=== PATIENT | male | born 1960 | race Caucasian/White ===

== ENCOUNTER 2019-05-15 14:53 | Emergency (ER) | payer OTHER ==
[~2019-05-15] VITALS: Ht 177.8 cm; Wt 76.7 kg
[2019-05-15 15:03] VITALS: BP 116/76
--- NOTE | 2019-05-15 15:07 | NUR ---
PT AMBULATED TO ER BED 03
--- NOTE | 2019-05-15 15:12 | NUR ---
PT REQUESTING REFIL OF TEMAZEPAM 30MG. STATES HE RAN OUT AND OFFICE IS CLOSED UNTIL SATURDAY LAST FILLED 04/15/19 QTY 30. ER MD SAW THE PT, WILL REFILL MEDS . PT SATBLE, SITTING ON HIS BED. HX: INSOMNIA RX: TEMAZEPAM
[2019-05-15 15:19] VITALS: BP 116/76
== END 2019-05-15 15:18 | disposition home or self-care (01) ==
LOC: MED 14:53
DX: G47.00 Insomnia, unspecified (principal); Z76.0 Encounter for issue of repeat prescription
CPT/HCPCS: 99283

== ENCOUNTER 2019-12-21 17:27 | Emergency (ER) | payer OTHER ==
[~2019-12-21] VITALS: Ht 172.7 cm; Wt 74.8 kg
[2019-12-21 18:14] VITALS: BP 134/85
--- NOTE | 2019-12-21 18:54 | NUR ---
PT AMBULATED TO CHAIR B.
--- NOTE | 2019-12-21 19:08 | NUR ---
PT BIB SELF REQUESTING MEDICATION REFILL OF RESTORIL 30MG PO HS; LAST FILLED 11/21/19 30 COUNT. PT DENIES N/V/D; SKIN IS INTACT, PINK/WARM/DRY; AAOX4, PERRL, WITH EVEN AND STEADY GAIT; LUNGS CLEAR BL, BREATHING UNLABORED; HR EVEN AND REGULAR, BL PERIPHERAL PULSES PRESENT; BS ACTIVE X4, NO TENDERNESS TO PALPATION. PT DENIES ANY FEVER, CP, SOB, OR COUGH AT THIS TIME; PT STATES 0/10 PAIN AT THIS TIME; VSS; PATIENT POSITIONED FOR COMFORT; HOB ELEVATED; BEDRAILS UP X2; BED DOWN.
[2019-12-21 19:42] VITALS: BP 134/85
--- NOTE | 2019-12-21 19:42 | NUR ---
Patient discharged with v/s stable. Written and verbal after care instructions given and explained. Patient alert, oriented and verbalized understanding of instructions. Ambulatory with steady gait. All questions addressed prior to discharge. ID band removed. Patient advised to follow up with PMD. Rx of RESTORIL given. Patient educated on indication of medication including possible reaction and side effects. Opportunity to ask questions provided and answered.
== END 2019-12-21 19:42 | disposition home or self-care (01) ==
LOC: MED 17:27
DX: G47.00 Insomnia, unspecified (principal); Z76.0 Encounter for issue of repeat prescription
CPT/HCPCS: 99281

== ENCOUNTER 2020-03-27 12:50 | Emergency (ER) | payer OTHER ==
[~2020-03-27] VITALS: Ht 172.7 cm; Wt 74.8 kg
--- NOTE | 2020-03-27 13:09 | NUR ---
PT AMBULATED TO ER CHAIR A
--- NOTE | 2020-03-27 13:25 | NUR ---
MED REFILL: TEMAZEPAM 30 MG
== END 2020-03-27 13:48 | disposition home or self-care (01) ==
LOC: MED 12:50
DX: G47.00 Insomnia, unspecified (principal); F41.9 Anxiety disorder, unspecified; Z76.0 Encounter for issue of repeat prescription
CPT/HCPCS: 99283

== ENCOUNTER 2020-04-02 09:08 | Emergency (ER) | payer OTHER ==
[~2020-04-02] VITALS: Ht 172.7 cm; Wt 74.8 kg
--- NOTE | 2020-04-02 09:12 | NUR ---
Patient ambulated to bed 7.
[2020-04-02 09:16] VITALS: BP 126/62
--- NOTE | 2020-04-02 09:21 | NUR ---
PT PRESENTS TO THE ER FOR MEDICATION REFILL OF RESTORIL 30MG HS FOR HX OF INSOMNIA. DENIES N/V/D; SKIN IS PINK/WARM/DRY; AAOX4 WITH EVEN AND STEADY GAIT; LUNGS CLEAR BL; HR EVEN AND REGULAR; PT DENIES ANY FEVER, CP, SOB, OR COUGH AT THIS TIME; PATIENT STATES PAIN OF 0/10 AT THIS TIME; VSS; PATIENT POSITIONED FOR COMFORT; HOB ELEVATED; BEDRAILS UP X1; BED DOWN. ER MD MADE AWARE OF PT STATUS.
[2020-04-02 09:44] VITALS: BP 126/62
--- NOTE | 2020-04-02 09:44 | NUR ---
Patient discharged with v/s stable. Written and verbal after care instructions given and explained. Patient alert, oriented and verbalized understanding of instructions. Ambulatory with steady gait. All questions addressed prior to discharge. ID band removed. Patient advised to follow up with PMD. Rx of Restoril 30mg given. Patient educated on indication of medication including possible reaction and side effects. Opportunity to ask questions provided and answered.
== END 2020-04-02 09:44 | disposition home or self-care (01) ==
LOC: MED 09:08
DX: G47.00 Insomnia, unspecified (principal); R03.0 Elevated blood-pressure reading, without diagnosis of hypertension
CPT/HCPCS: 99281

== ENCOUNTER 2021-03-07 16:18 | Emergency (ER) | payer OTHER ==
[~2021-03-07] VITALS: Ht 172.7 cm; Wt 78.5 kg
[2021-03-07 16:24] VITALS: BP 138/88
--- NOTE | 2021-03-07 16:24 | NUR ---
PT AMBULATED TO BED 12 WITH STEADY GAIT
--- NOTE | 2021-03-07 16:25 | NUR ---
60 Y/O MALE REQUESTING MEDICATION REFILL FOR TEMAZEPAM TO HELP WITH SLEEPING/ANXIETY. PT TOOK LAST ONE LAST NIGHT. PT MISSED HIS APPT WITH PCP. PT HAS BEEN TAKEN IT FOR YEARS. PT DENIES N/V/PAIN. PT A/O X4 WITH EVEN AND UNLABORED RESPIRATIONS PMH: ANXIETY NKDA
[2021-03-07] MEDS ORDERED: TEMA30CA23 PO (16:50)
--- NOTE | 2021-03-07 17:02 | NUR ---
Patient discharged with v/s stable. Written and verbal after care instructions ABOUT MEDICINE REFILL AT ER given and explained. Patient alert, oriented and verbalized understanding of instructions. Ambulatory with steady gait. All questions addressed prior to discharge. ID band removed. Patient advised to follow up with PMD. Rx of TEMAZEPAM given. Patient educated on indication of medication including possible reaction and side effects. Opportunity to ask questions provided and answered.
[2021-03-07 17:03] VITALS: BP 138/88
== END 2021-03-07 17:02 | disposition home or self-care (01) ==
LOC: MED 16:18
DX: F41.9 Anxiety disorder, unspecified (principal); Z76.0 Encounter for issue of repeat prescription; Z79.899 Other long term (current) drug therapy
CPT/HCPCS: 99281

== ENCOUNTER 2021-11-10 09:50 | Emergency (ER) | payer OTHER ==
[~2021-11-10] VITALS: Ht 172.7 cm; Wt 74.8 kg
[~2021-11-10 09:50] MED LIST: TEMA30CA23 PO
[2021-11-10 10:02] VITALS: BP 137/76
[2021-11-10] MEDS ORDERED: TEMA30CA23 PO (10:36)
--- NOTE | 2021-11-10 10:40 | NUR ---
NO NURSING INTERVENTIONS NEEDED. SEEN & TREATED BY DR HORAN.
[2021-11-10 10:45] VITALS: BP 137/76
== END 2021-11-10 10:45 | disposition home or self-care (01) ==
LOC: MED 09:50
DX: G47.00 Insomnia, unspecified (principal); F41.9 Anxiety disorder, unspecified; Z76.0 Encounter for issue of repeat prescription
CPT/HCPCS: 99281

== ENCOUNTER 2021-12-22 10:40 | Emergency (ER) | payer OTHER ==
[~2021-12-22] VITALS: Ht 172.7 cm; Wt 74.8 kg
[2021-12-22 10:43] VITALS: BP 148/75
--- NOTE | 2021-12-22 10:53 | NUR ---
DR. FIGUEROA BEDSIDE EVALUATING PT
[2021-12-22] MEDS ORDERED: TEMA30CA23 PO (10:56)
--- NOTE | 2021-12-22 10:56 | NUR ---
61 Y/O MALE BIB SELF FOR A REFILL FOR INSOMNIA MEDICATION. PT STATES HE HAS AN APPOINTMENT WITH PMD FOR 01/22/22. PT. DENIES FEVER, CHILLS N/V. PT. DENIES MEDICAL HISTORY. PT. ALERT AND ORIENTED X4. PMH: INSOMIA ALLERGIES: DENIES
[2021-12-22 11:03] VITALS: BP 148/75
== END 2021-12-22 11:03 | disposition home or self-care (01) ==
LOC: MED 10:40
DX: G47.00 Insomnia, unspecified (principal); Z76.0 Encounter for issue of repeat prescription; Z79.899 Other long term (current) drug therapy
CPT/HCPCS: 99281

== ENCOUNTER 2023-11-15 10:11 | Emergency (ER) | payer OTHER ==
[~2023-11-15] VITALS: Ht 172.7 cm; Wt 73.9 kg
[2023-11-15 10:14] VITALS: BP 132/72; PULSE 66; RESP 20; TEMP 97.3; O2SAT 97
[2023-11-15] MEDS ORDERED: TEMA30CA23 PO (10:31)
[2023-11-15 10:42] VITALS: BP 132/72; PULSE 66; RESP 20; TEMP 97.3; O2SAT 97
== END 2023-11-15 10:42 | disposition home or self-care (01) ==
LOC: MED 10:11
DX: G47.00 Insomnia, unspecified (principal); Z76.0 Encounter for issue of repeat prescription; Z79.899 Other long term (current) drug therapy
CPT/HCPCS: 99281; 99283